=== PATIENT | male | born 1950 | race Caucasian/White ===

== ENCOUNTER 2019-06-15 18:39 | Inpatient (IN) | payer OTHER, MEDICAID ==
[~2019-06-15] VITALS: Ht 167.6 cm; Wt 81.6 kg
[2019-06-15] MEDS ORDERED: LISI40TA4 PO (18:49)
[2019-06-15] MEDS ORDERED: ISOS1POW MC (18:49)
[2019-06-15] MEDS ORDERED: VIT1TABL86 PO (18:49)
[2019-06-15] MEDS ORDERED: ESCI5TAB12 PO (18:49)
[2019-06-15] MEDS ORDERED: ASPI-1393 PO (18:49)
[2019-06-15] MEDS ORDERED: FURO40TA5 PO (18:49)
[2019-06-15] MEDS ORDERED: AMLO10TA80 PO (18:49)
[2019-06-15] MEDS ORDERED: METO-385 PO (18:49)
[2019-06-15] MEDS ORDERED: ATOR40TA70 PO (18:49)
[2019-06-15] MEDS ORDERED: GLIM2TAB2 PO (18:49)
[2019-06-15] MEDS ORDERED: RANI150T7 PO (18:49)
[2019-06-15] MEDS ORDERED: INSU100I28 SQ (18:49)
[2019-06-15] MEDS ORDERED: VANCOMYCIN 1 G PREMIX 200 ML IV ONE (19:45)
[2019-06-15] MEDS ORDERED: SODIUM CHLORIDE 0.9% 1000ML BAG (SEPSIS BOLUS) IV ONE (19:45)
[2019-06-15] MEDS ORDERED: PIPERACILLIN/TAZ 3.375G PREMIX 50 ML IV ONE (19:45)
[2019-06-15 20:20] LABS: BASOPHILS % 0.2 % (0.0-2.0); EOSINOPHILS % 0.7 % (0.0-5.0); HEMATOCRIT. 25.8 % (42.0-52.0); HEMOGLOBIN. 8.5 g/dL (14.0-18.0); LYMPHOCYTES % 9.3 % (20.0-50.0); MEAN CORPUSCULAR HEMOGLOBIN 30.1 pg (28.0-32.0); MEAN CORPUSCULAR VOLUME 90.7 fL (80.0-94.0); MEAN PLATELET VOLUME 9.8 fl (7.4-10.4); MONOCYTES % 6.7 % (2.0-8.0); NEUTROPHILS % 83.1 % (40.0-76.0); PLATELET 237 x1000/uL (130-400); RED BLOOD CELL COUNT 2.84 mill/uL (4.7-6.1); RED CELL DISTRIBUTION WIDTH 15.6 % (11.6-14.6)
[2019-06-15 20:25] LABS: INR 1.1; PROTHROMBIN TIME 10.8 sec (9.6-11.0)
[2019-06-15 20:27] LABS: CHLORIDE 98 mEq/L (98-107)
[2019-06-15] MEDS ORDERED: PIPERACILLIN/TAZOBACTAM 3.375 G in DEXT 5% WATER 100 ML IV NR (20:30)
[2019-06-15] MEDS ORDERED: ASPIRIN 81MG TABLET PO ONE (23:00)
[2019-06-15 23:50] VITALS: BP 117/55
[2019-06-16] VITALS (7 sets, daily range): BP systolic 117–147; BP diastolic 55–84
[2019-06-16] MEDS ORDERED: ONDA4TAB5 PO (00:52)
[2019-06-16] MEDS ORDERED: CHLO10TA9 PO (00:52)
[2019-06-16] MEDS ORDERED: PANT40TA4 PO (00:52)
[2019-06-16] MEDS ORDERED: LINA5TAB PO (00:52)
[2019-06-16] MEDS ORDERED: ACETAMINOPHEN 325MG TABLET PO PRN (01:15)
[2019-06-16] MEDS ORDERED: DIPHENHYDRAMINE 50MG/ML VIAL IV PRN (01:15)
[2019-06-16] MEDS ORDERED: MAGNESIUM/ALUMINUM HYDROXIDE/SIMETHICONE 30ML UDC PO PRN (01:15)
[2019-06-16] MEDS ORDERED: GUAIFENESIN 200MG/10ML SUGAR FREE UDC PO PRN (01:15)
[2019-06-16] MEDS ORDERED: MORPHINE SULFATE 2 MG/ML CPJ (NOT FOR IM USE) IV PRN (01:15)
[2019-06-16] MEDS ORDERED: CLONIDINE 0.1MG TABLET PO PRN (01:15)
[2019-06-16] MEDS ORDERED: DOCUSATE SODIUM 100MG CAPSULE PO PRN (01:15)
[2019-06-16] MEDS ORDERED: ONDANSETRON HCL 4MG/2ML INJ IV PRN (01:15)
[2019-06-16] MEDS ORDERED: DEXTROSE 50% WATER 50ML SYRINGE IV PRN (03:45)
[2019-06-16] MEDS: BLOOD SUGAR DIAGNOSTIC STRIP TEST SCH ×4 (06:09→21:11)
[2019-06-16] MEDS: INSULIN LISPRO 100 UNITS/ML SUBCUT SCH ×4 (07:29→21:00)
[2019-06-16] MEDS: AMLODIPINE 10MG TABLET PO SCH (08:35)
[2019-06-16] MEDS ORDERED: AMLODIPINE 10MG TABLET PO SCH (09:15)
[2019-06-16] MEDS: ATORVASTATIN CALCIUM 40MG TABLET PO SCH (09:49)
[2019-06-16] MEDS: PANTOPRAZOLE 40MG DR TABLET PO SCH ×2 (09:49→17:23)
[2019-06-16] MEDS: ASPIRIN 81MG EC TABLET PO SCH (09:50)
[2019-06-16 12:27] LABS: HEPATITIS B SURFACE AB < 3.1 mIU/mL
[2019-06-16 12:38] LABS: HEPATITIS B SURFACE ANTIGEN NEGATIVE
[2019-06-16 13:06] LABS: HEPATITIS A AB IGM NEGATIVE (NEGATIVE)
[2019-06-16] MEDS ORDERED: ENOXAPARIN 30MG/0.3ML SYR SUBCUT SCH (21:00)
[2019-06-16] MEDS ORDERED: ENOXAPARIN 40MG/0.4ML SYR SUBCUT SCH (21:00)
[2019-06-17] VITALS: BP 143/60
[2019-06-17 04:00] VITALS: BP 152/65
[2019-06-17 06:43] LABS: CHLORIDE 107 mEq/L (98-107)
[2019-06-17 06:50] LABS: BASOPHILS % 0.5 % (0.0-2.0); EOSINOPHILS % 1.8 % (0.0-5.0); HEMATOCRIT. 25.6 % (42.0-52.0); HEMOGLOBIN. 8.5 g/dL (14.0-18.0); MEAN CORPUSCULAR VOLUME 90.7 fL (80.0-94.0); MEAN PLATELET VOLUME 9.5 fl (7.4-10.4); MONOCYTES % 7.7 % (2.0-8.0); PLATELET 226 x1000/uL (130-400); RED BLOOD CELL COUNT 2.83 mill/uL (4.7-6.1); RED CELL DISTRIBUTION WIDTH 15.2 % (11.6-14.6)
[2019-06-17 06:53] LABS: LDL CHOLESTEROL 52 mg/dL (5-100)
[2019-06-17 06:54] LABS: HDL CHOLESTEROL 27 mg/dL (40-59); T4 FREE 1.38 ng/dL (0.76-1.46)
[2019-06-17] MEDS: BLOOD SUGAR DIAGNOSTIC STRIP TEST SCH ×3 (07:06→17:40)
[2019-06-17 08:00] VITALS: BP 164/69
[2019-06-17] MEDS: INSULIN LISPRO 100 UNITS/ML SUBCUT SCH ×3 (08:10→18:10)
[2019-06-17] MEDS: ATORVASTATIN CALCIUM 40MG TABLET PO SCH (09:00)
[2019-06-17] MEDS: AMLODIPINE 10MG TABLET PO SCH (09:00)
[2019-06-17] MEDS: PANTOPRAZOLE 40MG DR TABLET PO SCH ×2 (10:18→18:11)
[2019-06-17] MEDS: ASPIRIN 81MG EC TABLET PO SCH (10:19)
[2019-06-17 12:00] VITALS: BP 155/71
[2019-06-17 13:52] VITALS: BP 155/71
[2019-06-17 16:00] VITALS: BP 119/57
== END 2019-06-17 19:18 | disposition home health service (06) | DRG 314 ==
LOC: ER 19:14 → 7WST 22:51 → ENRESERV 23:00
PROVIDERS: ADMIT Hospitalist; ATTEND Hospitalist
PROC: 5A1D70Z Performance of Urinary Filtration, Intermittent, Less than 6 Hours Per Day (ICD-10-PCS; principal; 2019-06-17)
DX: I95.9 Hypotension, unspecified (principal); E43 Unspecified severe protein-calorie malnutrition; N18.6 End stage renal disease; I13.2 Hypertensive heart and chronic kidney disease with heart failure and with stage 5 chronic kidney disease, or end stage renal disease; E87.1 Hypo-osmolality and hyponatremia; R55 Syncope and collapse; I50.9 Heart failure, unspecified; E11.51 Type 2 diabetes mellitus with diabetic peripheral angiopathy without gangrene; D63.1 Anemia in chronic kidney disease; E11.22 Type 2 diabetes mellitus with diabetic chronic kidney disease; I25.2 Old myocardial infarction; Z99.2 Dependence on renal dialysis; Z89.412 Acquired absence of left great toe; Z68.29 Body mass index [BMI] 29.0-29.9, adult; Z79.899 Other long term (current) drug therapy
CPT/HCPCS: 36415; 71045; 80061; 82962; 83036; 83605; 84145; 84439; 84443; 84484; 86705; 86706; 86709; 86803; 86850; 86900; 87340; 93005; 93970; 97163; 99285; J1650; J1815; J2270; J2405; J2543; J3370; J7030; J7040; J7060

== ENCOUNTER 2019-07-05 15:48 | Emergency (ER) | payer OTHER, MEDICAID ==
[~2019-07-05] VITALS: Ht 167.6 cm; Wt 63.0 kg
[~2019-07-05 15:48] MED LIST: AMLO10TA80 PO; ATOR40TA70 PO; CHLO10TA9 PO; ESCI5TAB12 PO; FURO40TA5 PO; GLIM2TAB2 PO; ISOS1POW MC; LINA5TAB PO; LISI40TA4 PO; METO-385 PO; ONDA4TAB5 PO; PANT40TA4 PO; VIT1TABL86 PO
[2019-07-05 21:30] VITALS: BP 177/80
== END 2019-07-05 22:12 | disposition home or self-care (01) ==
LOC: ER 15:48
DX: Z46.6 Encounter for fitting and adjustment of urinary device (principal); R33.9 Retention of urine, unspecified; I25.2 Old myocardial infarction; E11.22 Type 2 diabetes mellitus with diabetic chronic kidney disease; I13.2 Hypertensive heart and chronic kidney disease with heart failure and with stage 5 chronic kidney disease, or end stage renal disease; I50.9 Heart failure, unspecified; N18.6 End stage renal disease; Z99.2 Dependence on renal dialysis; Z79.82 Long term (current) use of aspirin
CPT/HCPCS: 51702; 99284; A4315